=== PATIENT | female | born 1995 | race Native Hawaiian/Other Pacific Islander ===

== ENCOUNTER 2018-03-02 15:13 | Emergency (ER) | payer OTHER ==
[2018-03-02 15:44] VITALS: BP 134/80; PULSE 71; RESP 16; TEMP 97.4; O2SAT 100
--- NOTE | 2018-03-02 16:24 | PD ---
HPI Chief Complaint: Bleeding Time Seen by Provider: 16:12 Travel History International Travel<30 days: No Contact w/Intl Traveler<30days: No Traveled to known affect area: No History of Present Illness HPI Patient comes in complaining of a prolonged. Lasting about 2 weeks now. Patient used to have 5 days maximum of her. In the last normal one was back in December. However between January and February she has had this prolonged bleeding which is not normal for her. Patient otherwise denies any associated history such as fever, rash, lightheadedness, dizziness, headache, neck pain, back pain , chest pain, abdominal pain. Patient denies any associated or aggravating factors. Denies any known drug allergies Denies any past medical or surgical history Has a PCP [facility] Past Medical History Anxiety: Yes Migraines: Yes ?: Not LMP: 02/16/18 Social History Alcohol Use: Yes ([facility]) Tobacco Use: No Substance Use: No Allergies-Medications (Allergen,Severity, Reaction): Coded Allergies: No Known Allergies (Verified Adverse Reaction, Unknown, 03/02/18) Reported Meds & Prescriptions Reported Meds & Active Scripts Active No Active Prescriptions or Reported Medications Review of Systems General / Constitutional: No: Fever Eyes: No: Visual changes HENT: No: Headaches Cardiovascular: No: Chest Pain or Discomfort Respiratory: No: Shortness of Breath Gastrointestinal: No: Abdominal Pain Genitourinary: Positive: Menorrhagia Musculoskeletal: No: Pain Skin: No Rash Neurologic: No: Weakness Psychiatric: No: Depression Endocrine: No: Polydipsia Hematologic/Lymphatic: No: Easy Bruising Physical Exam Narrative GENERAL: SKIN: Warm and dry. HEAD: Atraumatic. Normocephalic. EYES: Pupils equal and round. No scleral icterus. No injection or drainage. ENT: No nasal bleeding or discharge. Mucous membranes pink and moist. NECK: Trachea midline. No JVD. CARDIOVASCULAR: Regular rate and rhythm. RESPIRATORY: No accessory muscle use. Clear to auscultation. Breath sounds equal bilaterally. GASTROINTESTINAL: Abdomen soft, non-tender, nondistended. MUSCULOSKELETAL: Extremities without clubbing, cyanosis, or edema. No obvious deformities. NEUROLOGICAL: Awake and alert. No obvious cranial nerve deficits. Motor grossly within normal limits. Five out of 5 muscle strength in the arms and legs. Normal speech. PSYCHIATRIC: Appropriate mood and affect; insight and judgment normal. Data Data Last Documented VS Vital Signs Date Time Temp Pulse Resp B/P (MAP) Pulse Ox O2 Delivery O2 Flow Rate FiO2 03/02/18 15:44 97.4 71 16 134/80 (98) 100 Orders Orders Urinalysis - C+S If Indicated (03/02/18 16:20) Ed Urine Pregnancytest Poc (03/02/18 16:20) MDM Medical Decision Making Medical Screen Exam Complete: Yes Emergency Medical Condition: Yes Medical Record Reviewed: Yes Differential Diagnosis related such as ectopic versus threatened miscarriage versus incomplete miscarriage versus miscarriage versus missed AB versus non- related such as dysfunctional uterine bleeding Narrative Course test is negative UA will be sent to lab for the sake of completeness, however the UA results are not necessary to disposition the patient Diagnosis Primary Impression: Dysfunctional uterine bleeding Patient Instructions: Dysfunctional Uterine Bleeding (ED), General Instructions Scripts Medroxyprogesterone Acetate (Medroxyprogesterone Acetate) 10 Mg Tab 10 MG PO DAILY for Uterine bleeding, #10 TAB 0 Refills Start day 16 Prov: Randy Villar MD 03/02/18 Disposition: 01 DISCHARGE HOME Condition: Stable Randy Villar MD Mar 02, 2018 16:23
[2018-03-02] MEDS ORDERED: MEDR10TA7 PO (16:51)
[2018-03-02 17:42] LABS: BILIRUBIN, URINE NEG (NEG); BLOOD, URINE MOD (NEG); GLUCOSE,URINE NEG (NEG); KETONE, URINE NEG (NEG); MUCUS URINE FEW /lpf (OCC); NITRITE,URINE NEG (NEG); SQUAMOUS EPITHELIAL CELL URINE <1 /hpf (0-5); URINE COLOR LIGHT-YELLOW (YELLW/STRAW); URINE LEUKOCYTE ESTERASE NEG (NEG)
== END 2018-03-02 17:13 | disposition home or self-care (01) ==
LOC: NEPD 15:13
DX: N93.8 Other specified abnormal uterine and vaginal bleeding (principal); F41.9 Anxiety disorder, unspecified
CPT/HCPCS: 81001; 84703; 99283